=== PATIENT | female | born 2000 | race African-American/Black ===

== ENCOUNTER 2020-11-23 11:10 | Emergency (ER) | payer OTHER ==
[~2020-11-23] VITALS: Ht 160 cm; Wt 86.2 kg
[2020-11-23] MEDS ORDERED: BACTRIM DS TAB1 EAC1 PO (14:15)
[2020-11-23] MEDS ORDERED: NORCO5 PO (14:15)
[2020-11-23 14:31] VITALS: BP 127/73
== END 2020-11-23 14:31 | disposition home or self-care (01) ==
LOC: ER 11:10
DX: L02.412 Cutaneous abscess of left axilla (principal)